=== PATIENT | female | born 1945 | race African-American/Black ===

== ENCOUNTER 2021-01-31 15:15 | Inpatient (IN) | payer BC ==
[~2021-01-31] VITALS: Ht 162.6 cm; Wt 87.1 kg
[2021-01-31] MEDS ORDERED: ACETAMINOPHEN 650MG SUPP PR STA (15:37)
[2021-01-31] MEDS ORDERED: VANCOMYCIN 1 G PREMIX 200 ML IV ONE (15:45)
[2021-01-31] MEDS ORDERED: MEROPENEM 1,000 MG in SODIUM CHLORIDE 0.9% 100 ML IV ONE (15:45)
[2021-01-31] MEDS ORDERED: SODIUM CHLORIDE 0.9% 1000ML BAG (SEPSIS BOLUS) IV ONE (15:45)
[2021-01-31 17:07] LABS: BASOPHILS % 0.6 % (0.0-2.0); EOSINOPHILS % 0.6 % (0.0-5.0); HEMATOCRIT. 36.2 % (36.0-48.0); HEMOGLOBIN. 12.5 g/dL (12.0-16.0); LYMPHOCYTES % 8.2 % (20.0-50.0); MEAN CORPUSCULAR HEMOGLOBIN 30.8 pg (28.0-32.0); MEAN CORPUSCULAR VOLUME 89.3 fL (81.0-99.0); MEAN PLATELET VOLUME 8.5 fl (7.4-10.4); MONOCYTES % 2.9 % (2.0-8.0); NEUTROPHILS % 87.7 % (40.0-76.0); PLATELET 203 x1000/uL (130-400); RED BLOOD CELL COUNT 4.06 mill/uL (4.2-5.4); RED CELL DISTRIBUTION WIDTH 14.3 % (11.6-14.6)
[2021-01-31 17:16] LABS: CHLORIDE 100 mEq/L (98-107)
[2021-01-31 17:44] LABS: INR 1.2; PROTHROMBIN TIME 12.4 sec (9.6-11.0)
[2021-01-31 18:00] LABS: CLARITY URINE TURBID (CLEAR); COLOR URINE YELLOW (YELLOW); KETONES URINE NEGATIVE (NEGATIVE); LEUKOCYTE ESTERASE URINE 3+ (NEGATIVE); NITRITE URINE POSITIVE (NEGATIVE); OCCULT BLOOD URINE 2+ (NEGATIVE); PROTEIN URINE 1+ (NEGATIVE); SPECIFIC GRAVITY URINE 1.016 (1.005-1.030); UROBILINOGEN URINE 0.2 E.U./dL (0.2-1.0)
[2021-01-31] MEDS ORDERED: NOREPINEPHRINE 8MG/250ML PMX 250 ML IV ONE (19:00)
[2021-01-31] MEDS ORDERED: NOREPINEPHRINE 8 MG in DEXT 5% WATER 250 ML IV NR (19:15)
[2021-01-31] MEDS ORDERED: NITROGLYCERIN 0.4MG TABLET SL SL PRN (22:00)
[2021-01-31] MEDS ORDERED: ACETAMINOPHEN 325MG TABLET PO PRN ×2 (22:00)
[2021-01-31] MEDS ORDERED: MAGNESIUM/ALUMINUM HYDROXIDE/SIMETHICONE 30ML UDC PO PRN (22:00)
[2021-01-31] MEDS ORDERED: IPRATROPIUM/ALBUTEROL 0.5-3(2.5)MG/3ML NEB NEB PRN (22:00)
[2021-01-31] MEDS ORDERED: GUAIFENESIN 200MG/10ML SUGAR FREE UDC PO PRN (22:00)
[2021-01-31] MEDS ORDERED: ONDANSETRON HCL 4MG/2ML INJ IV PRN (22:00)
[2021-01-31] MEDS ORDERED: ZOLPIDEM TARTRATE 5MG TABLET PO PRN (22:00)
[2021-01-31] MEDS ORDERED: CLONIDINE 0.1MG TABLET PO PRN (22:00)
[2021-01-31] MEDS ORDERED: DOCUSATE SODIUM 100MG CAPSULE PO PRN (22:00)
[2021-01-31] MEDS ORDERED: KETOROLAC 15MG/ML VIAL IV PRN (22:14)
[2021-01-31] MEDS ORDERED: TRAMADOL 50MG TABLET PO PRN (22:16)
[2021-01-31] MEDS ORDERED: NOREPINEPHRINE 8 MG in DEXT 5% WATER 242 ML IV PRN (22:30)
[2021-01-31 23:08] LABS: CREATINE KINASE 58 IU/L (26-192)
[2021-01-31 23:09] LABS: CREATINE KINASE MB FRACTION < 1.0 ng/mL (0.5-3.6); T4 FREE 1.56 ng/dL (0.76-1.46)
[2021-02-01] MEDS: DEXT 5%/LACTATED RINGERS 1,000 ML IV SCH ×2 (00:32→11:22)
[2021-02-01] MEDS: MEROPENEM 1,000 MG in SODIUM CHLORIDE 0.9% 100 ML IV SCH ×2 (02:30→10:41)
[2021-02-01] MEDS: VANCOMYCIN 500 MG PREMIX 100 ML IV SCH ×2 (04:55→17:32)
[2021-02-01 04:58] LABS: HEMATOCRIT. 31.2 % (36.0-48.0); HEMOGLOBIN. 10.6 g/dL (12.0-16.0); MEAN CORPUSCULAR HEMOGLOBIN 29.6 pg (28.0-32.0); MEAN CORPUSCULAR VOLUME 87.5 fL (81.0-99.0); MEAN PLATELET VOLUME 8.1 fl (7.4-10.4); PLATELET 226 x1000/uL (130-400); RED BLOOD CELL COUNT 3.56 mill/uL (4.2-5.4); RED CELL DISTRIBUTION WIDTH 14.3 % (11.6-14.6)
[2021-02-01 05:06] LABS: CHLORIDE 107 mEq/L (98-107)
[2021-02-01 05:13] LABS: CREATINE KINASE 94 IU/L (26-192); LDL CHOLESTEROL 57 mg/dL (5-100); PHOSPHORUS 1.8 mg/dL (2.5-4.9)
[2021-02-01 05:14] LABS: CREATINE KINASE MB FRACTION < 1.0 ng/mL (0.5-3.6); HDL CHOLESTEROL 42 mg/dL (40-59)
[2021-02-01] MEDS: CHOLECALCIFEROL (D3) 1000 UNIT TABLET PO SCH (09:00)
[2021-02-01] MEDS: ASCORBIC ACID 500 MG TABLET PO SCH ×2 (09:00→21:00)
[2021-02-01] MEDS: ASPIRIN 325MG EC TABLET PO SCH (09:00)
[2021-02-01] MEDS: ZINC SULFATE 220 MG ( 50 ) CAPSULE PO SCH (09:00)
[2021-02-01] MEDS: PANTOPRAZOLE SODIUM 40 MG/VIAL IV SCH (09:45)
[2021-02-01] MEDS: ENOXAPARIN 40MG/0.4ML SYR SUBCUT SCH (09:49)
[2021-02-01 15:38] LABS: PLATELET ESTIMATE NORMAL
[2021-02-01] MEDS ORDERED: MAGNESIUM 4 G PREMIX 100 ML IV NR (19:00)
[2021-02-01] MEDS ORDERED: POTASSIUM PHOS,M-BASIC-D-BASIC 30 MMOL in SODIUM CHLORIDE 0.9% 500 ML IV NR (19:30)
[2021-02-01 22:40] VITALS: BP 93/66
[2021-02-01 22:49] VITALS: BP 106/60
[2021-02-01] MEDS ORDERED: ACETAMINOPHEN 650MG SUPP PR PRN (23:15)
[2021-02-01] MEDS: MEROPENEM 1000MG in NORMAL SALINE 100ML IV SCH (23:42)
[2021-02-02] VITALS (15 sets, daily range): BP systolic 92–142; BP diastolic 48–102
[2021-02-02] MEDS: DEXT 5%/LACTATED RINGERS 1,000 ML IV SCH ×2 (02:03→15:38)
[2021-02-02] MEDS ORDERED: DIPH50CA38 PO (03:06)
[2021-02-02] MEDS ORDERED: ATOR20TA65 PO (03:06)
[2021-02-02] MEDS ORDERED: APIX2.5T PO (03:06)
[2021-02-02] MEDS ORDERED: LEVE500T19 PO (03:06)
[2021-02-02] MEDS: VANCOMYCIN 500 MG PREMIX 100 ML IV SCH (05:25)
[2021-02-02] MEDS: MEROPENEM 1000MG in NORMAL SALINE 100ML IV SCH ×2 (09:34→21:43)
[2021-02-02] MEDS: PANTOPRAZOLE SODIUM 40 MG/VIAL IV SCH (09:35)
[2021-02-02] MEDS: ENOXAPARIN 40MG/0.4ML SYR SUBCUT SCH (09:35)
[2021-02-02] MEDS: ASPIRIN 325MG EC TABLET PO SCH (09:59)
[2021-02-02] MEDS: ASCORBIC ACID 500 MG TABLET PO SCH ×2 (09:59→21:43)
[2021-02-02] MEDS: ZINC SULFATE 220 MG ( 50 ) CAPSULE PO SCH (09:59)
[2021-02-02] MEDS: CHOLECALCIFEROL (D3) 1000 UNIT TABLET PO SCH (10:00)
[2021-02-02] MEDS ORDERED: VANCOMYCIN 750 MG PREMIX 150 ML IV SCH (12:00)
[2021-02-03] VITALS (18 sets, daily range): BP systolic 117–148; BP diastolic 55–89
[2021-02-03] MEDS: DEXT 5%/LACTATED RINGERS 1,000 ML IV SCH ×2 (05:16→18:13)
[2021-02-03 07:11] LABS: CHLORIDE 109 mEq/L (98-107)
[2021-02-03 07:17] LABS: BASOPHILS % 0.4 % (0.0-2.0); EOSINOPHILS % 2.4 % (0.0-5.0); HEMATOCRIT. 28.6 % (36.0-48.0); LYMPHOCYTES % 13.6 % (20.0-50.0); MEAN CORPUSCULAR HEMOGLOBIN 30.5 pg (28.0-32.0); MEAN CORPUSCULAR VOLUME 87.6 fL (81.0-99.0); MEAN PLATELET VOLUME 8.7 fl (7.4-10.4); NEUTROPHILS % 75.6 % (40.0-76.0); PLATELET 194 x1000/uL (130-400); RED BLOOD CELL COUNT 3.27 mill/uL (4.2-5.4); RED CELL DISTRIBUTION WIDTH 14.7 % (11.6-14.6)
[2021-02-03] MEDS: MEROPENEM 1000MG in NORMAL SALINE 100ML IV SCH ×2 (09:09→21:03)
[2021-02-03] MEDS: FAMOTIDINE 20MG/2ML VIAL IV SCH ×2 (09:39→21:03)
[2021-02-03] MEDS: ENOXAPARIN 40MG/0.4ML SYR SUBCUT SCH (09:42)
[2021-02-03] MEDS: ASPIRIN 325MG EC TABLET PO SCH (09:47)
[2021-02-03] MEDS: CHOLECALCIFEROL (D3) 1000 UNIT TABLET PO SCH (09:47)
[2021-02-03] MEDS: ASCORBIC ACID 500 MG TABLET PO SCH ×2 (09:47→21:03)
[2021-02-03] MEDS: ZINC SULFATE 220 MG ( 50 ) CAPSULE PO SCH (09:48)
[2021-02-03] MEDS: IRON SUCROSE COMPLEX 100 MG/5 ML ML IV SCH (15:50)
[2021-02-03] MEDS: ENOXAPARIN 30MG/0.3ML SYR SUBCUT SCH (21:04)
[2021-02-04] VITALS (26 sets, daily range): BP systolic 116–151; BP diastolic 37–96
[2021-02-04] MEDS: DEXT 5%/LACTATED RINGERS 1,000 ML IV SCH ×2 (06:36→21:23)
[2021-02-04] MEDS: MEROPENEM 1000MG in NORMAL SALINE 100ML IV SCH ×2 (08:39→21:23)
[2021-02-04 09:15] LABS: BASOPHILS % 0.5 % (0.0-2.0); EOSINOPHILS % 3.4 % (0.0-5.0); HEMATOCRIT. 31.7 % (36.0-48.0); HEMOGLOBIN. 10.6 g/dL (12.0-16.0); LYMPHOCYTES % 18.1 % (20.0-50.0); MEAN CORPUSCULAR HEMOGLOBIN 29.5 pg (28.0-32.0); MEAN CORPUSCULAR VOLUME 88.5 fL (81.0-99.0); MEAN PLATELET VOLUME 8.7 fl (7.4-10.4); MONOCYTES % 11.8 % (2.0-8.0); NEUTROPHILS % 66.2 % (40.0-76.0); PLATELET 210 x1000/uL (130-400); RED BLOOD CELL COUNT 3.58 mill/uL (4.2-5.4); RED CELL DISTRIBUTION WIDTH 14.6 % (11.6-14.6)
[2021-02-04 09:19] LABS: CHLORIDE 108 mEq/L (98-107)
[2021-02-04] MEDS: ZINC SULFATE 220 MG ( 50 ) CAPSULE PO SCH (09:39)
[2021-02-04] MEDS: ASCORBIC ACID 500 MG TABLET PO SCH ×2 (09:39→21:24)
[2021-02-04] MEDS: CHOLECALCIFEROL (D3) 1000 UNIT TABLET PO SCH (09:39)
[2021-02-04] MEDS: ASPIRIN 325MG EC TABLET PO SCH (09:40)
[2021-02-04] MEDS: ENOXAPARIN 30MG/0.3ML SYR SUBCUT SCH ×3 (09:41→21:25)
[2021-02-04] MEDS: FAMOTIDINE 20MG/2ML VIAL IV SCH ×2 (10:01→21:24)
[2021-02-04 11:22] LABS: PHOSPHORUS 1.7 mg/dL (2.5-4.9)
[2021-02-04 12:06] LABS: INR 1.1; PROTHROMBIN TIME 11.4 sec (9.6-11.0)
[2021-02-04] MEDS: IRON SUCROSE COMPLEX 100 MG/5 ML ML IV SCH (15:22)
[2021-02-04 21:16] LABS: INR 1.1; PROTHROMBIN TIME 11.4 sec (9.6-11.0)
[2021-02-04 21:17] LABS: BASOPHILS % 0.5 % (0.0-2.0); EOSINOPHILS % 2.5 % (0.0-5.0); HEMOGLOBIN. 11.4 g/dL (12.0-16.0); LYMPHOCYTES % 23.6 % (20.0-50.0); MEAN CORPUSCULAR HEMOGLOBIN 29.8 pg (28.0-32.0); MEAN CORPUSCULAR VOLUME 88.6 fL (81.0-99.0); MEAN PLATELET VOLUME 8.5 fl (7.4-10.4); MONOCYTES % 12.1 % (2.0-8.0); NEUTROPHILS % 61.3 % (40.0-76.0); PLATELET 214 x1000/uL (130-400); RED BLOOD CELL COUNT 3.83 mill/uL (4.2-5.4); RED CELL DISTRIBUTION WIDTH 14.6 % (11.6-14.6)
[2021-02-04 21:19] LABS: CHLORIDE 107 mEq/L (98-107)
[2021-02-05] VITALS (11 sets, daily range): BP systolic 132–147; BP diastolic 60–96
[2021-02-05] MEDS: ASPIRIN 325MG EC TABLET PO SCH (09:00)
[2021-02-05] MEDS: CHOLECALCIFEROL (D3) 1000 UNIT TABLET PO SCH (09:00)
[2021-02-05] MEDS: ZINC SULFATE 220 MG ( 50 ) CAPSULE PO SCH (09:00)
[2021-02-05] MEDS: ASCORBIC ACID 500 MG TABLET PO SCH ×2 (09:00→20:37)
[2021-02-05] MEDS: FAMOTIDINE 20MG/2ML VIAL IV SCH ×2 (09:06→20:37)
[2021-02-05] MEDS: ENOXAPARIN 30MG/0.3ML SYR SUBCUT SCH ×2 (09:08→20:37)
[2021-02-05] MEDS: MEROPENEM 1000MG in NORMAL SALINE 100ML IV SCH ×2 (09:09→20:36)
[2021-02-05] MEDS: DEXT 5%/LACTATED RINGERS 1,000 ML IV SCH ×2 (09:10→22:30)
[2021-02-05 14:47] LABS: BG BASE EXCESS 7.6 mmol/L (-2.0-2.0); BG CARBOXYHEMOGLOBIN 0.1 % (0.5-1.5); BG DEOXYHEMOGLOBIN 3.8 % (0.0-5.0); BG FRACTION INSPIRED OXYGEN 21; BG HCO3 ACT 31.3 mmol/L (22.0-26.0); BG METHEMOGLOBIN 0.2 % (0.0-1.5); BG OXYGEN SATURATION 96.2 % (92.0-98.5); BG OXYHEMOGLOBIN 95.9 % (94.0-97.0); BG PCO2 40.3 mmHg (35.0-45.0); BG PH 7.508 (7.350-7.450); BG PO2 79.6 mmHg (75.0-100.0); BG SAMPLE SITE RIGHT RADIAL; BG TOTAL HEMOGLOBIN 11.1 g/dL (12.0-18.0); BG VENT MODE ROOM AIR
[2021-02-05] MEDS: IRON SUCROSE COMPLEX 100 MG/5 ML ML IV SCH (15:23)
[2021-02-05] MEDS ORDERED: MIDAZOLAM HCL 5 MG/5 ML VIAL IV PRN (17:43)
[2021-02-05] MEDS ORDERED: MIDAZOLAM HCL 5 MG/5 ML VIAL ONE (17:43)
[2021-02-05] MEDS ORDERED: FENTANYL CITRATE/PF 50MCG/ML 2ML VIAL ONE (17:44)
[2021-02-06] VITALS (9 sets, daily range): BP systolic 121–152; BP diastolic 68–92
[2021-02-06] MEDS ORDERED: LIDOCAINE HCL 1% 20ML VIAL (Pyxis) INJ ONE (08:10)
[2021-02-06] MEDS: ZINC SULFATE 220 MG ( 50 ) CAPSULE PO SCH (08:39)
[2021-02-06] MEDS: FAMOTIDINE 20MG/2ML VIAL IV SCH ×2 (08:39→20:34)
[2021-02-06] MEDS: FOLIC ACID 1MG TABLET PO SCH (08:39)
[2021-02-06] MEDS: ENOXAPARIN 30MG/0.3ML SYR SUBCUT SCH ×2 (08:39→20:35)
[2021-02-06] MEDS: ASCORBIC ACID 500 MG TABLET PO SCH ×2 (08:39→20:34)
[2021-02-06] MEDS: CHOLECALCIFEROL (D3) 1000 UNIT TABLET PO SCH (08:39)
[2021-02-06] MEDS: ASPIRIN 325MG EC TABLET PO SCH (08:43)
[2021-02-06] MEDS: DEXT 5%/LACTATED RINGERS 1,000 ML IV SCH (17:36)
[2021-02-07] VITALS (18 sets, daily range): BP systolic 124–155; BP diastolic 20–96
[2021-02-07] MEDS: DEXT 5%/LACTATED RINGERS 1,000 ML IV SCH (05:29)
[2021-02-07] MEDS: ASPIRIN 325MG EC TABLET PO SCH (09:12)
[2021-02-07] MEDS: ASCORBIC ACID 500 MG TABLET PO SCH ×2 (09:12→21:46)
[2021-02-07] MEDS: ZINC SULFATE 220 MG ( 50 ) CAPSULE PO SCH (09:12)
[2021-02-07] MEDS: FOLIC ACID 1MG TABLET PO SCH (09:12)
[2021-02-07] MEDS: CHOLECALCIFEROL (D3) 1000 UNIT TABLET PO SCH (09:12)
[2021-02-07] MEDS: FAMOTIDINE 20MG/2ML VIAL IV SCH ×2 (09:12→21:46)
[2021-02-07] MEDS: ENOXAPARIN 30MG/0.3ML SYR SUBCUT SCH ×2 (09:13→21:46)
[2021-02-07] MEDS ORDERED: [UNRECOGNIZED DRUG - OTHER] XX SCH (13:45)
[2021-02-07] MEDS: MEROPENEM 1000MG in NORMAL SALINE 100ML IV SCH ×2 (16:16→23:16)
[2021-02-08] VITALS (13 sets, daily range): BP systolic 117–140; BP diastolic 68–93
[2021-02-08] MEDS: MEROPENEM 1000MG in NORMAL SALINE 100ML IV SCH ×2 (06:23→15:37)
[2021-02-08] MEDS: FOLIC ACID 1MG TABLET PO SCH (09:39)
[2021-02-08] MEDS: FAMOTIDINE 20MG/2ML VIAL IV SCH ×2 (09:39→22:55)
[2021-02-08] MEDS: ASCORBIC ACID 500 MG TABLET PO SCH ×2 (09:39→22:55)
[2021-02-08] MEDS: ASPIRIN 325MG EC TABLET PO SCH (09:39)
[2021-02-08] MEDS: ZINC SULFATE 220 MG ( 50 ) CAPSULE PO SCH (09:39)
[2021-02-08] MEDS: ENOXAPARIN 30MG/0.3ML SYR SUBCUT SCH ×2 (09:39→22:56)
[2021-02-08] MEDS: CHOLECALCIFEROL (D3) 1000 UNIT TABLET PO SCH (09:39)
[2021-02-08] MEDS: MEROPENEM-0.9% SODIUM CHLORIDE 50 ML IV SCH (22:54)
[2021-02-09] VITALS: BP 135/87
[2021-02-09 04:00] VITALS: BP 138/84
[2021-02-09] MEDS: MEROPENEM-0.9% SODIUM CHLORIDE 50 ML IV SCH ×3 (07:20→22:43)
[2021-02-09 08:00] VITALS: BP 116/97
[2021-02-09] MEDS: FAMOTIDINE 20MG/2ML VIAL IV SCH ×2 (09:57→22:42)
[2021-02-09] MEDS: ASCORBIC ACID 500 MG TABLET PO SCH ×2 (09:58→22:42)
[2021-02-09] MEDS: FOLIC ACID 1MG TABLET PO SCH (09:58)
[2021-02-09] MEDS: ENOXAPARIN 30MG/0.3ML SYR SUBCUT SCH (09:58)
[2021-02-09] MEDS: ASPIRIN 325MG EC TABLET PO SCH (09:58)
[2021-02-09] MEDS: ZINC SULFATE 220 MG ( 50 ) CAPSULE PO SCH (09:58)
[2021-02-09] MEDS: CHOLECALCIFEROL (D3) 1000 UNIT TABLET PO SCH (09:58)
[2021-02-09 12:00] VITALS: BP 150/82
[2021-02-09 16:00] VITALS: BP 141/83
[2021-02-09 20:00] VITALS: BP 134/87
[2021-02-10] VITALS: BP 130/75
[2021-02-10 04:00] VITALS: BP 135/87
[2021-02-10] MEDS: MEROPENEM-0.9% SODIUM CHLORIDE 50 ML IV SCH (06:17)
[2021-02-10 08:00] VITALS: BP 133/91
[2021-02-10 08:28] VITALS: BP 133/91
[2021-02-10] MEDS ORDERED: ENOXAPARIN 40MG/0.4ML SYR SUBCUT SCH (09:00)
== END 2021-02-10 10:39 | disposition home health service (06) | DRG 871 ==
LOC: ER 15:15 → MICUSO 20:52 → EDBD 20:52 → EDBEDREQ 20:58 → EDBEDREQSVC 20:58 → EDBEDREQTM 20:58 → SUPCPDRO 21:47 → 3WST 02-01 20:51 → 6EST 02-08 14:53
PROVIDERS: ADMIT Internal Medicine; ATTEND Internal Medicine
PROC: B54BZZA Ultrasonography of Right Lower Extremity Veins, Guidance (ICD-10-PCS; 2021-01-31)
PROC: 06HY33Z Insertion of Infusion Device into Lower Vein, Percutaneous Approach (ICD-10-PCS; 2021-01-31)
PROC: 0DH63UZ Insertion of Feeding Device into Stomach, Percutaneous Approach (ICD-10-PCS; principal; 2021-02-05)
PROC: 02HV33Z Insertion of Infusion Device into Superior Vena Cava, Percutaneous Approach (ICD-10-PCS; 2021-02-06)
PROC: B548ZZA Ultrasonography of Superior Vena Cava, Guidance (ICD-10-PCS; 2021-02-06)
DX: A41.51 Sepsis due to Escherichia coli [E. coli] (principal); E43 Unspecified severe protein-calorie malnutrition; G92 Toxic encephalopathy; R65.21 Severe sepsis with septic shock; E87.1 Hypo-osmolality and hyponatremia; E87.2 Acidosis; K57.32 Diverticulitis of large intestine without perforation or abscess without bleeding; N13.6 Pyonephrosis; J90 Pleural effusion, not elsewhere classified; R47.01 Aphasia; Z16.12 Extended spectrum beta lactamase (ESBL) resistance; E11.9 Type 2 diabetes mellitus without complications; E83.39 Other disorders of phosphorus metabolism; E78.5 Hyperlipidemia, unspecified; E83.42 Hypomagnesemia; Z20.822 Contact with and (suspected) exposure to COVID-19; F03.90 Unspecified dementia, unspecified severity, without behavioral disturbance, psychotic disturbance, mood disturbance, and anxiety; I10 Essential (primary) hypertension; D50.9 Iron deficiency anemia, unspecified; K57.30 Diverticulosis of large intestine without perforation or abscess without bleeding; E53.8 Deficiency of other specified B group vitamins; K29.70 Gastritis, unspecified, without bleeding; K40.90 Unilateral inguinal hernia, without obstruction or gangrene, not specified as recurrent; L30.9 Dermatitis, unspecified; E78.00 Pure hypercholesterolemia, unspecified; R13.12 Dysphagia, oropharyngeal phase; Z82.3 Family history of stroke; Z82.49 Family history of ischemic heart disease and other diseases of the circulatory system; Z86.73 Personal history of transient ischemic attack (TIA), and cerebral infarction without residual deficits; Z88.0 Allergy status to penicillin; Z79.1 Long term (current) use of non-steroidal anti-inflammatories (NSAID); Z79.899 Other long term (current) drug therapy; Z68.33 Body mass index [BMI] 33.0-33.9, adult
CPT/HCPCS: 36415; 36600; 70551; 71045; 74176; 76700; 76937; 80048; 80053; 80061; 80202; 81003; 82375; 82550; 82553; 82607; 82746; 82805; 82962; 83540; 83550; 83605; 83735; 84100; 84145; 84439; 84443; 84484; 85025; 87077; 87186; 87426; 92610; 93005; 93306; 93970; 99291; A6261; C1725; C1769; C9113; J1650; J2185; J2250; J3010; J3370; J3475; J3490; J7030; J7040; J7050; J7060; J7070